=== PATIENT | male | born 1975 | race Caucasian/White ===

== ENCOUNTER 2019-06-26 22:29 | Observation (INO) | payer MEDICARE ==
[2019-06-27] MEDS ORDERED: Ondansetron PF 4 MG/2 ML Vial IVP PRN (08:32)
--- NOTE | 2019-06-27 09:16 | HP ---
CHIEF COMPLAINT: Sudden onset of dizziness. 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 He felt like the room is spinning along with the headache which is all over his head, generalized headache, some nausea but no vomiting. No fever or chills. Apparently, he fell on Saturday and dizziness started on . He sustained some small skin injury to the scalp in the parietal area. He denies any chest pain, shortness of breath. PAST SURGICAL HISTORY: Positive for three orthopedic surgeries and tonsillectomy. SOCIAL HISTORY: He drinks socially. He smokes cigars daily and he does not use any illicit drugs. ALLERGIES: TDAP VACCINE. CURRENT MEDICATIONS: None. FAMILY HISTORY: Noncontributory. REVIEW OF SYSTEMS: All 14 systems were reviewed and they were negative except for symptoms mentioned in HPI. PHYSICAL EXAMINATION: This is done through the manager [employer] through the Internet. VITAL SIGNS: Blood pressure is 109/72, pulse is 55, respirations 19, temperature is 98.2. Pain is rated at 5. O2 saturation is 97% on room air. HEENT: His pupils are responding to light properly. He does not have nystagmus. Sclerae are nonicteric. Conjunctivae are pinkish. Oral mucosa is moist. NECK: Supple. LUNGS: Clear. HEART: S1, S2 normal. ABDOMEN: Soft, nontender, nondistended. EXTREMITIES: No clubbing, cyanosis, or edema. NEUROLOGIC: He is alert and oriented x3. He is able to move his all 4 extremities, maybe there is a questionable facial droop on the left, but that is very questionable. Babinski sign negative. His gait was examined in the emergency room and it was unsteady. LABORATORY DATA: White count of 7.2, hemoglobin 13.9, hematocrit 40.5, platelet count is 224,000. Chemistry showed sodium of 141, potassium 3.4, chloride 108. The rest of chemistry is within normal limits. Troponin I less than 0.010. BNP 22.4. Normal liver function test. Normal kidney function. The chest x-ray did not show any acute abnormalities and CT of the brain did not show any intracranial abnormalities. IMPRESSION: 1. Sudden onset of dizziness with some nausea, which is very suspicious for inner ear problem. Labyrinthitis in acute onset. He received meclizine in the emergency room. 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 2. History of meningitis in childhood rendering the patient deaf with some aphasia. PLAN: Admission for observation. Condition is fair. Activity is bedrest and bathroom privileges with assistance. IV Hep-Lock. MRI of the brain without contrast. Meclizine 25 mg q.8 hours, Tylenol p.r.n. for the headache and Zofran for nausea. DVT prophylaxis with SCDs and Lovenox subcutaneously every 24 hours. Job ID: [id number]
[2019-06-27] MEDS: Acetaminophen 325 MG TAB PO PRN (09:45)
[2019-06-27] MEDS: Enoxaparin Sodium 40 MG/0.4 ML SYRINGE SC SCH (09:52)
[2019-06-27 10:44] VITALS: BMI 26.4
--- NOTE | 2019-06-27 11:37 | MRI ---
EXAM: MRI Brain WO Con PROVIDED CLINICAL HISTORY: Acute dizziness. Patient fell and hit right temporal region. COMPARISON: CT head on 06/26/2019 FINDINGS: There is significant patient motion artifact. Sequences were repeated, but there is persistent motion which does degrade image quality. However, no definitive signal abnormality is seen within the brain. There is no restricted diffusion to suggest an acute infarction. No signal abnormalities are s een on the gradient echo sequence. The septum pellucidum and third ventricle are in the midline. The ventricular system is normal in siz e, shape, and position. Flow voids at the base the brain are unable to be evaluated due to significant motion artifact. 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 The paranasal sinuses appear clear. IMPRESSION: 1. Limited examination due to significant patient motion, but no definite acute intracranial abnormal ity is demonstrated.
[2019-06-27] MEDS ORDERED: Aspirin 325 MG TAB PO SCH (12:15)
[2019-06-27] MEDS ORDERED: FLU VACC QS2019-20(6MOS UP)/PF 60 MCG/0.5 ML SYRINGE IM ONE (14:00)
[2019-06-27] MEDS: Meclizine HCl 25 MG TAB PO SCH ×2 (15:52→21:55)
[2019-06-28 04:49] LABS: #Basophils 0.1 thou/uL (0.0-0.2); #Eosinphils 0.2 thou/uL (0.0-0.7); #Lymphocytes 2.9 thou/uL (1.20-3.40); #Monocytes 0.4 thou/uL (0.11-0.59); %Basophils 1.5 % (0.0-1.0); %Eosinophils 3.5 % (0.0-10.0); %Lymphocytes 43.3 % (21.0-51.0); %Monocytes 6.6 % (0.0-10.0); %Neutrophils 45.1 % (42.0-75.0); Hemoglobin 14.1 g/dL (14.0-18.0); Mean Corpuscular HGB CONC 34.1 g/dL (32.0-36.0); Mean Corpuscular Hemoglobin 30.5 pg (27.0-31.0); Mean Corpuscular Volume 89.5 fL (78.0-98.0); Mean Platelet Volume 7.6 fL (7.4-10.4); Platelet Count 229 thou/uL (130-400); RBC Distribution Width 11.7 % (11.5-14.5); Red Blood Cell (RBC) Count 4.64 mill/uL (4.70-6.10); White Blood Cell (WBC) Count 6.6 thou/uL (4.8-10.8)
[2019-06-28 05:09] LABS: Anion Gap 10 mmol/L (10-20); BUN (Urea Nitrogen) 9 mg/dL (8.9-20.6); Calc. Creatinine Clearance 107 mL/min (70-130); Calcium 8.9 mg/dL (7.8-10.44); Carbon Dioxide 28 mmol/L (22-29); Chloride 106 mmol/L (98-107); Estimated GFR-MDRD 74; Glucose 94 mg/dL (70-105); Potassium 3.6 mmol/L (3.5-5.1); Sodium 140 mmol/L (136-145)
[2019-06-28] MEDS: Meclizine HCl 25 MG TAB PO SCH ×2 (06:26→13:13)
[2019-06-28] MEDS: Acetaminophen 325 MG TAB PO PRN (08:47)
[2019-06-28] MEDS: Enoxaparin Sodium 40 MG/0.4 ML SYRINGE SC SCH (08:49)
[2019-06-28] MEDS ORDERED: Aspirin 325 MG TAB PO SCH (09:00)
[2019-06-28 12:11] VITALS: BP 122/78; TEMP 98.2
--- NOTE | 2019-06-28 12:54 | DIS ---
DATE OF ADMISSION: 06/27/2019 DATE OF DISCHARGE: 06/28/2019 DIAGNOSES AT THE TIME OF DISCHARGE: 1. Sudden onset of dizziness with nausea, which is suspicious for acute labyrinthitis, improved. Acute cerebrovascular accident of the posterior blood supply the brain system was ruled out. 2. History of meningitis in childhood, rendering the patient deaf with some aphasia. 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 He has some nausea, but no vomiting. No fever. No chills. This is new onset. He had this fall with some head injury and some skin injury to the scalp in the parietal area. At the time of emergency room evaluation, his hemoglobin was 13.9, white count was 7.2, hematocrit 40.5. Potassium 3.4. Troponin I less than 0.010. BNP was 22.4. Normal kidney function. The chest x-ray showed no acute abnormalities and the CT of the brain did not show any intracranial abnormalities. He got admitted to the hospital. He had MRI of the brain done, which did not show any acute cerebrovascular accident. He was placed on meclizine and his dizziness improved. He is doing well. He is discharged home in good condition. Vitals; blood pressure 132/78, pulse is 60, respiratory rate is 18, O2 saturation is 96% on room air, temperature is 97.8. He is going to stay on heart healthy diet. ACTIVITIES: As tolerated. He will use meclizine p.r.n. as needed every 4 to 6 hours one tablet 25 mg, it is [id number]. FOLLOWUP: He will follow up with his primary care physician in 1 week. TIME SPENT: Time spent on this discharge is less than 30 minutes. Job ID: [id number]
== END 2019-06-28 13:38 | disposition home or self-care (01) ==
LOC: ERS 22:29 → ERHOLD 06-27 00:05 → 2SE 06-27 07:34
PROVIDERS: ADMIT Hospitalist; ATTEND Hospitalist
DX: R42 Dizziness and giddiness (principal); R11.0 Nausea; H91.90 Unspecified hearing loss, unspecified ear; R47.01 Aphasia; F17.290 Nicotine dependence, other tobacco product, uncomplicated; Z86.61 Personal history of infections of the central nervous system; Z88.7 Allergy status to serum and vaccine
CPT/HCPCS: 70551; 80048; 85025; 96372 ×2; 99285; G0378 ×4; 36415; J1650; J8597